=== PATIENT | female | born 1965 | race Two or more races ===

== ENCOUNTER 2019-06-06 23:00 | Emergency (ER) | payer MEDICAID ==
[~2019-06-06] VITALS: Ht 165.1 cm; Wt 84.4 kg
[2019-06-06 23:30] VITALS: BP 138/80
== END 2019-06-07 03:48 | disposition left against medical advice (07) ==
LOC: ER 23:04
DX: K08.89 Other specified disorders of teeth and supporting structures (principal); Z53.21 Procedure and treatment not carried out due to patient leaving prior to being seen by health care provider